=== PATIENT | male | born 1985 | race Caucasian/White ===

== ENCOUNTER 2016-12-04 09:53 | Emergency (ER) | payer MEDICAID ==
[2016-12-04 10:00] VITALS: TEMP 98.2
[2016-12-04] MEDS ORDERED: NS 1,000 ML IV ONE ×2 (10:50→11:15)
[2016-12-04 10:54] VITALS: RESP 16
[2016-12-04] MEDS ORDERED: ONDANSETRON 4 MG/2 ML VIAL IVP ONE ×2 (11:15→13:20)
[2016-12-04] MEDS ORDERED: ONDANSETRON 4 MG/2 ML VIAL ONE (11:16)
[2016-12-04 11:23] LABS: % IMMATURE GRANULYOCYTES 0.8 % (0.0-1.1); ABSOLUTE IMMATURE GRANULOCYTES 0.06 10^3/uL (0.00-0.10); ADD DIFF? NO; ADD MORPH? NO; ADD SCAN? NO; ATYPICAL LYMPHOCYTE FLAG 10 (0-99); FRAGMENT RBC FLAG 0 (0-99); HEMATOCRIT 46.5 % (40.0-51.0); HEMOGLOBIN 16.5 g/dL (13.7-17.5); LEFT SHIFT FLG 0 (0-99); LIPEMIA HEMOLYSIS FLAG 90 (0-99); MEAN CELL HEMOGLOBIN 29.9 pg (27.9-34.1); MEAN CELL HEMOGLOBIN CONCENTR. 35.5 g/dL (32.4-36.7); MEAN CELL VOLUME 84.4 fL (81.5-99.8); MEAN PLATELET VOLUME 9.3 fL (8.7-11.7); PLATELET CLUMPS FLAG 0 (0-99); PLATELET COUNT 327 10^3/uL (150-400); RED BLOOD CELL COUNT 5.51 10^6/uL (4.40-6.38); RED CELL DISTRIBUTION WIDTH 12.5 % (11.5-15.2)
[2016-12-04 11:32] LABS: ANION GAP 13 mEq/L (8-16); CALCIUM 9.5 mg/dL (8.5-10.4); CARBON DIOXIDE 21 mEq/l (22-31); CHLORIDE 106 mEq/L (97-110); CREATININE 0.8 mg/dL (0.7-1.3); GLOMERULAR FILTRATION RATE > 60; GLUCOSE 104 mg/dL (70-100); POTASSIUM 4.6 mEq/L (3.5-5.2); SODIUM 140 mEq/L (134-144)
--- NOTE | 2016-12-04 11:33 | EDPHY ---
H & P Time Seen by Provider: 12/04/16 10:17 HPI/ROS: CHIEF COMPLAINT: Nausea vomiting HISTORY OF PRESENT ILLNESS: 31-year-old male presents to the emergency department by private vehicle complaining of multiple episodes of nausea vomiting over last 24-48 hours. Patient denies any diarrhea. He describes diffuse abdominal cramping. He has some diffuse pain in his body. No known ill contacts. No recent travel. No known contaminated food or water. No back pain. He thinks he has only urinated twice since yesterday. He does not get flu shots. REVIEW OF SYSTEMS: Constitutional: No fever, no chills. Eyes: No double or blurry vision. ENT: No sore throat. Respiratory: No cough, no shortness of breath. Cardiac: No chest pain. Gastrointestinal: Abdominal pain, vomiting. No diarrhea. Genitourinary: No dysuria. Musculoskeletal: No neck or back pain. Skin: No rashes. Neurological: No headache. Past Medical/Surgical History: Sensitive stomach Social History: Single Smoking Status: Never smoked Physical Exam: General Appearance: Alert, no distress. 36.8, 11[birth year]22/1972, 92% on room air. Eyes: Pupils equal and round. Extraocular motions are all intact. ENT: Mouth: Mucous membranes moist. Respiratory: No wheezing, rhonchi, or rales, lungs are clear to auscultation. Cardiovascular: Regular rate and rhythm. Gastrointestinal: Abdomen is soft. He has tenderness with palpation in the right and left lower quadrant as well as in the left upper quadrant. No rebound , guarding or masses noted. No CVA tenderness bilaterally. Neurological: Alert and oriented x 3, cranial nerves II through XII grossly intact Skin: Warm and dry, no rashes. Musculoskeletal: Nontender to palpate along the cervical, thoracic or lumbar spine. Neck is supple. Extremities: Full range of motion and no peripheral edema. Psychiatric: Patient is oriented X 3, there is no agitation. Constitutional: Initial Vital Signs Temperature (C) 36.8 C 12/04/16 09:56 Heart Rate 76 12/04/16 09:56 Respiratory Rate 18 12/04/16 09:56 Blood Pressure 127/73 H 12/04/16 09:56 O2 Sat (%) 92 12/04/16 09:56 O2 Delivery Mode Room Air Allergies/Adverse Reactions: acetaminophen [From Vicodin] Allergy (Verified 04/30/16 13:57) hydrocodone bitartrate [From Vicodin] Allergy (Verified 04/30/16 13:57) Home Medications: Medication Instructions Recorded Flexeril 04/30/16 LORAZEPAM 04/30/16 traZODONE 04/30/16 Ondansetron Odt [Zofran Odt] 4 mg PO Q4PRN #5 tab 12/04/16 Medical Decision Making ED Course/Re-evaluation: 31-year-old male presents to the emergency department with nausea vomiting. He had IV normal saline as well as IV Zofran and was feeling much better. His abdomen is benign. I do not think CT imaging is indicated. Laboratory studies are unremarkable. Influenza was negative. The patient was sent home with additional Zofran as needed. He tolerated juice and crackers in the emergency department upon discharge. Differential Diagnosis: Including but not limited to gastritis, gastroenteritis, GERD, peptic ulcer disease, influenza, acute appendicitis - Data Points Laboratory Results: Laboratory Results 12/04/16 10:40 12/04/16 10:40 12/04/16 12/04/16 11:10 10:40 WBC 7.85 10^3/uL (3.80-9.50) RBC 5.51 10^6/uL (4.40-6.38) Hgb 16.5 g/dL (13.7-17.5) Hct 46.5 % (40.0-51.0) MCV 84.4 fL (81.5-99.8) MCH 29.9 pg (27.9-34.1) MCHC 35.5 g/dL (32.4-36.7) RDW 12.5 % (11.5-15.2) Plt Count 327 10^3/uL (150-400) MPV 9.3 fL (8.7-11.7) Neut % (Auto) 75.4 H % (39.3-74.2) Lymph % (Auto) 18.0 % (15.0-45.0) [place] % (Auto) 4.3 L % (4.5-13.0) Eos % (Auto) 1.1 % (0.6-7.6) Baso % (Auto) 0.4 % (0.3-1.7) Nucleat RBC Rel Count 0.0 % (0.0-0.2) Absolute Neuts (auto) 5.92 10^3/uL (1.70-6.50) Absolute Lymphs (auto) 1.41 10^3/uL (1.00-3.00) Absolute Monos (auto) 0.34 10^3/uL (0.30-0.80) Absolute Eos (auto) 0.09 10^3/uL (0.03-0.40) Absolute Basos (auto) 0.03 10^3/uL (0.02-0.10) Absolute Nucleated RBC 0.00 10^3/uL (0-0.01) Immature Gran % 0.8 % (0.0-1.1) Immature Gran # 0.06 10^3/uL (0.00-0.10) Sodium 140 mEq/L (134-144) Potassium 4.6 mEq/L (3.5-5.2) Chloride 106 mEq/L (97-110) Carbon Dioxide 21 L mEq/l (22-31) Anion Gap 13 mEq/L (8-16) BUN 17 mg/dL (7-23) Creatinine 0.8 mg/dL (0.7-1.3) Estimated GFR > 60 Glucose 104 H mg/dL (70-100) Calcium 9.5 mg/dL (8.5-10.4) Influenza Typ A,B (DFA) NEGATIVE FOR FLU (NEGATIVE) Medications Given: Discontinued Medications Sodium Chloride (Ns) 1,000 mls @ 0 mls/hr IV ONCE ONE PRN Reason: Wide Open Stop: 12/04/16 10:51 Last Admin: 12/04/16 10:51 Dose: 1,000 mls Sodium Chloride (Ns) 1,000 mls @ 0 mls/hr IV ONCE ONE PRN Reason: Wide Open Stop: 12/04/16 11:16 Last Admin: 12/04/16 11:26 Dose: 1,000 mls Ondansetron HCl (Zofran) 4 mg IVP EDNOW ONE Stop: 12/04/16 11:16 Last Admin: 12/04/16 11:26 Dose: 4 mg Ondansetron HCl (Zofran) 4 mg IVP EDNOW ONE Stop: 12/04/16 13:21 Last Admin: 12/04/16 13:32 Dose: 4 mg Departure - Departure Disposition: Home, Routine, Self-Care Clinical Impression: Gastritis Qualifiers: Gastritis type: unspecified gastritis Chronicity: acute Gastritis bleeding: without bleeding Qualifier Code: (K29.00) Acute gastritis without bleeding Condition: Good Instructions: Gastritis (ED) Additional Instructions: Zofran as needed for nausea. Clear liquids and then slowly advance diet as tolerated. Return to the emergency department if you developed abdominal pain, fever, recurrent vomiting, or if you feel worse in any way. Referrals: Prosper Prado MD [Medical Doctor] - 1 day, if not improved (Primary care provider in [place]) Prescriptions: Ondansetron Odt [Zofran Odt] 4 mg PO Q4PRN #5 tab
[2016-12-04 13:41] VITALS: BP 121/70; PULSE 70; O2SAT 94
== END 2016-12-04 13:41 | disposition home or self-care (01) ==
DX: K29.00 Acute gastritis without bleeding (principal)
CPT/HCPCS: 96374; J2405

== ENCOUNTER 2016-12-19 10:15 | Emergency (ER) | payer MEDICAID ==
[2016-12-19] MEDS ORDERED: ONDANSETRON 4 MG/2 ML VIAL ONE (10:56)
[2016-12-19] MEDS ORDERED: ONDANSETRON 4 MG/2 ML VIAL IVP ONE (11:00)
[2016-12-19] MEDS ORDERED: NS 1,000 ML IV ONE (11:00)
[2016-12-19 11:08] LABS: % IMMATURE GRANULYOCYTES 1.6 % (0.0-1.1); ABSOLUTE IMMATURE GRANULOCYTES 0.13 10^3/uL (0.00-0.10); ADD DIFF? NO; ADD MORPH? NO; ADD SCAN? NO; ATYPICAL LYMPHOCYTE FLAG 10 (0-99); FRAGMENT RBC FLAG 0 (0-99); HEMATOCRIT 41.9 % (40.0-51.0); HEMOGLOBIN 14.7 g/dL (13.7-17.5); LEFT SHIFT FLG 10 (0-99); LIPEMIA HEMOLYSIS FLAG 90 (0-99); MEAN CELL HEMOGLOBIN 29.8 pg (27.9-34.1); MEAN CELL HEMOGLOBIN CONCENTR. 35.1 g/dL (32.4-36.7); MEAN PLATELET VOLUME 9.4 fL (8.7-11.7); PLATELET CLUMPS FLAG 0 (0-99); PLATELET COUNT 296 10^3/uL (150-400); RED BLOOD CELL COUNT 4.93 10^6/uL (4.40-6.38); RED CELL DISTRIBUTION WIDTH 12.7 % (11.5-15.2)
--- NOTE | 2016-12-19 11:21 | EDPHY ---
H & P Stated Complaint: NAUSEA FOR 2 WEEKS HPI/ROS: Chief complaint: Abdominal pain with nausea and vomiting History of present illness: This is a 31-year-old male who presents to the emergency department for evaluation of abdominal pain with associated nausea and vomiting. Patient reports essentially a lifelong history of recurrent abdominal pain with persistent nausea and vomiting. He states he has been evaluated in the past for his abdominal pain with CT scans and MRIs of the abdomen. He had recurrence of symptoms approximately 2 weeks ago. Symptoms are intermittent in nature. He was seen in the emergency department at that time as well. He does state he followed up with the primary care doctor recently. He has been told he needs to follow up with a vamp marker and he is attempting to do this. He states he called one today but they could not see him. He has been told he needs to get a referral. Patient states this is typical abdominal pain for him. There is nothing new or different as compared to previous episodes. He usually treats it was Zofran. No other associated signs or symptoms including no fevers, no diarrhea, no blood in the stools, no urinary symptoms. Review of systems: A 10 point review of systems was obtained and other than described above was negative - Personal History Current Tetanus/Diphtheria Vaccine: Yes Current Tetanus Diphtheria and Acellular Pertussis (TDAP): Yes Tetanus Vaccine Date: < 10 YEARS - Medical/Surgical History Hx Asthma: No Hx Chronic Respiratory Disease: No Hx Diabetes: No Hx Cardiac Disease: No Hx Renal Disease: No Hx Cirrhosis: No Hx Alcoholism: No Hx HIV/AIDS: No Hx Splenectomy or Spleen Trauma: No Other PMH: Anxiety - Social History Smoking Status: Never smoked - Physical Exam Exam: General Appearance: Alert, no distress. Eyes: Pupils equal and round no pallor or injection. ENT, Mouth: Mucous membranes moist. Respiratory: There are no retractions, lungs are clear to auscultation. Cardiovascular: Regular rate and rhythm. Gastrointestinal: Bowel sounds present and normal. Abdomen is soft, nondistended, nontender to palpation. No peritoneal signs. Neurological: Alert and oriented x4. Strength and sensation intact and symmetrical. He is ambulating without difficulty. Skin: Warm and dry, no rashes. Musculoskeletal: Neck is supple non tender. Extremities are symmetrical, full range of motion. Psychiatric: Patient is oriented X 3, there is no agitation. Constitutional: Initial Vital Signs Temperature (C) 36.7 C 12/19/16 10:22 Heart Rate 62 12/19/16 10:22 Respiratory Rate 18 12/19/16 10:22 Blood Pressure 115/62 12/19/16 10:22 O2 Sat (%) 93 12/19/16 10:22 O2 Delivery Mode Room Air Allergies/Adverse Reactions: acetaminophen [From Vicodin] Allergy (Verified 12/19/16 10:23) hydrocodone bitartrate [From Vicodin] Allergy (Verified 12/19/16 10:23) Home Medications: Medication Instructions Recorded Lorazepam [Ativan] 12/19/16 Ondansetron Odt [Zofran Odt 4 mg 4 mg PO Q4 #10 tab 12/19/16 (*)] Ondansetron Odt [Zofran Odt 4 mg 4 mg PO Q4 #20 tab 12/19/16 (*)] Medical Decision Making ED Course/Re-evaluation: Patient seen under the supervision of my secondary supervising physician Dr. Rj Martinez. Patient presents to the emergency department with abdominal pain with nausea and vomiting. On presentation he is nontoxic. Afebrile and vital signs are stable. Serial abdominal exams are performed and remain benign. Laboratory studies are unremarkable. He has a history of chronic abdominal pain, this is similar in nature. Given all of this I do not believe imaging studies are warranted today. Patient will be discharged home. Home care is discussed. He is referred to Gastroenterology for continued evaluation and care. I further discussed the case with case management and they will contact gastroenterology to facilitate follow-up for patient. Home care is discussed. Strict return precautions are given. Patient voiced understanding and agreement with plan. Differential Diagnosis: Included but not limited to gastritis, gastroenteritis, biliary tract disease, pancreatitis, colitis - Data Points Laboratory Results: Laboratory Results 12/19/16 11:00 12/19/16 11:00 12/19/16 12/19/16 12/19/16 13:03 11:00 11:00 WBC 7.96 10^3/uL 10^3/uL (3.80-9.50) RBC 4.93 10^6/uL 10^6/uL (4.40-6.38) Hgb 14.7 g/dL g/dL (13.7-17.5) Hct 41.9 % % (40.0-51.0) MCV 85.0 fL fL (81.5-99.8) MCH 29.8 pg pg (27.9-34.1) MCHC 35.1 g/dL g/dL (32.4-36.7) RDW 12.7 % % (11.5-15.2) Plt Count 296 10^3/uL 10^3/uL (150-400) MPV 9.4 fL fL (8.7-11.7) Neut % (Auto) 61.9 % % (39.3-74.2) Lymph % (Auto) 25.4 % % (15.0-45.0) [place] % (Auto) 6.9 % % (4.5-13.0) Eos % (Auto) 3.8 % % (0.6-7.6) Baso % (Auto) 0.4 % % (0.3-1.7) Nucleat RBC Rel Count 0.0 % % (0.0-0.2) Absolute Neuts (auto) 4.93 10^3/uL 10^3/uL (1.70-6.50) Absolute Lymphs (auto) 2.02 10^3/uL 10^3/uL (1.00-3.00) Absolute Monos (auto) 0.55 10^3/uL 10^3/uL (0.30-0.80) Absolute Eos (auto) 0.30 10^3/uL 10^3/uL (0.03-0.40) Absolute Basos (auto) 0.03 10^3/uL 10^3/uL (0.02-0.10) Absolute Nucleated RBC 0.00 10^3/uL 10^3/uL (0-0.01) Immature Gran % 1.6 % H % (0.0-1.1) Immature Gran # 0.13 10^3/uL H 10^3/uL (0.00-0.10) Sodium 136 mEq/L mEq/L (134-144) Potassium 4.4 mEq/L mEq/L (3.5-5.2) Chloride 101 mEq/L mEq/L (97-110) Carbon Dioxide 25 mEq/l mEq/l (22-31) Anion Gap 10 mEq/L mEq/L (8-16) BUN 15 mg/dL mg/dL (7-23) Creatinine 0.9 mg/dL mg/dL (0.7-1.3) Estimated GFR > 60 Glucose 88 mg/dL mg/dL (70-100) Calcium 9.0 mg/dL mg/dL (8.5-10.4) Total Bilirubin 0.5 mg/dL mg/dL (0.1-1.4) Conjugated Bilirubin 0.4 mg/dL mg/dL (0.0-0.5) Unconjugated Bilirubin 0.1 mg/dL mg/dL (0.0-1.1) AST 28 IU/L IU/L (17-59) ALT 57 IU/L IU/L (21-72) Alkaline Phosphatase 64 IU/L IU/L (38-126) Total Protein 7.0 g/dL g/dL (6.3-8.2) Albumin 4.0 g/dL g/dL (3.5-5.0) Lipase 51.0 IU/L IU/L (23-300) Medications Given: Discontinued Medications Sodium Chloride (Ns) 1,000 mls @ 0 mls/hr IV ONCE ONE PRN Reason: Wide Open Stop: 12/19/16 11:01 Last Admin: 12/19/16 11:01 Dose: 1,000 mls Ondansetron HCl (Zofran) 4 mg IVP EDNOW ONE Stop: 12/19/16 11:01 Last Admin: 12/19/16 11:02 Dose: 4 mg Departure - Departure Disposition: Home, Routine, Self-Care Clinical Impression: Abdominal pain Condition: Good Instructions: Acute Abdominal Pain (ED) Additional Instructions: Follow-up with Gastroenterology for continued evaluation and care If symptoms worsen or new symptoms develop return to the emergency department for recheck Referrals: Arnie Almazan MD [Primary Care Provider] - As per Instructions Shirlene Marshall MD [Medical Doctor] - As per Instructions Prescriptions: Ondansetron Odt [Zofran Odt 4 mg (*)] 4 mg PO Q4 #10 tab Ondansetron Odt [Zofran Odt 4 mg (*)] 4 mg PO Q4 #20 tab
[2016-12-19 12:09] LABS: ANION GAP 10 mEq/L (8-16); CARBON DIOXIDE 25 mEq/l (22-31); CHLORIDE 101 mEq/L (97-110); CREATININE 0.9 mg/dL (0.7-1.3); GLOMERULAR FILTRATION RATE > 60; GLUCOSE 88 mg/dL (70-100); POTASSIUM 4.4 mEq/L (3.5-5.2); SODIUM 136 mEq/L (134-144)
[2016-12-19 13:15] LABS: BILIRUBIN,TOTAL 0.5 mg/dL (0.1-1.4); BILIRUBIN-CONJUGATED 0.4 mg/dL (0.0-0.5); BILIRUBIN-UNCONJUGATED 0.1 mg/dL (0.0-1.1)
[2016-12-19 13:45] VITALS: BP 106/59; PULSE 58; RESP 16; TEMP 97.5; O2SAT 92
== END 2016-12-19 13:45 | disposition home or self-care (01) ==
DX: R10.9 Unspecified abdominal pain (principal)
CPT/HCPCS: 96374; J2405